=== PATIENT | female | born 2000 | race Caucasian/White ===

== ENCOUNTER 2024-11-30 08:38 | Emergency (ER) | payer MEDICAID ==
[~2024-11-30] VITALS: Ht 152.4 cm; Wt 129.6 kg
[2024-11-30] MEDS ORDERED: PRAZ1 PO (08:49)
[2024-11-30] MEDS ORDERED: ALBU18HF12 IH (08:49)
[2024-11-30] MEDS ORDERED: ONDA-104 PO (08:49)
[2024-11-30] MEDS ORDERED: SERT-158 PO (08:49)
[2024-11-30 09:09] LABS: BASOPHILS % (AUTO) 0.7 % (0.0-2.0); EOSINOPHILS % (AUTO) 1.4 % (1.0-6.0); HEMATOCRIT 43.2 % (36-46); LYMPHOCYTES # (AUTO) 2.6 K/uL (1.0-4.8); LYMPHOCYTES % (AUTO) 24.4 % (22.0-44.0); MEAN CORPUSCULAR HEMOGLOBIN 27.6 pg (26.0-34.0); MEAN CORPUSCULAR HGB CONC 32.5 G/dL (31.0-37.0); MEAN CORPUSCULAR VOLUME 85 fL (80-100); MONOCYTES # (AUTO) 0.8 K/uL (0.1-1.0); NEUTROPHILS # (AUTO) 7.2 K/uL (1.8-7.7); NEUTROPHILS % (AUTO) 66.5 % (40.0-70.0); PLATELET COUNT (AUTO) 284 K/uL (150-450); RED BLOOD CELL COUNT(AUTO) 5.08 MIL/uL (4.00-5.20); RED CELL DISTRIBUTION WIDTH 14.3 % (11.5-14.5); WHITE BLOOD COUNT (AUTO) 10.8 K/uL (4.5-11.0)
[2024-11-30] MEDS: OMEPRAZOLE 20 MG CAPSULE PO ONE (09:11)
[2024-11-30] MEDS: ONDANSETRON 4 MG TABLET PO ONE (09:11)
[2024-11-30] MEDS: ACETAMINOPHEN 500 MG TABLET PO ONE (09:12)
[2024-11-30] MEDS: LORazepam 2 MG TABLET PO ONE (09:12)
[2024-11-30 09:15] LABS: ANION GAP 8 mmol/L (8-16); CARBON DIOXIDE 28 mmol/L (22-29); CHLORIDE 101 mmol/L (98-107); CREATININE 0.53 mg/dL (0.60-1.30); GLOMERULAR FILTR. RATE CALC > 60 mL/min (>60); GLUCOSE,RANDOM 99 mg/dL (70-110); POTASSIUM 4.1 mmol/L (3.5-5.1); SODIUM SERUM 137 mmol/L (136-145); UREA NITROGEN, BLOOD 9 mg/dL (7-18)
[2024-11-30 10:07] VITALS: BP 127/70; PULSE 62; RESP 18; TEMP 97.9; O2SAT 100
[2024-11-30] MEDS ORDERED: OMEP-148 PO (10:16)
[2024-11-30] MEDS ORDERED: LORA1TAB25 PO (10:16)
== END 2024-11-30 10:30 | disposition home or self-care (01) ==
LOC: EMS 08:42
DX: R07.89 Other chest pain (principal); I10 Essential (primary) hypertension; J45.909 Unspecified asthma, uncomplicated; F43.22 Adjustment disorder with anxiety; K76.0 Fatty (change of) liver, not elsewhere classified; F32.A Depression, unspecified; Z79.899 Other long term (current) drug therapy
CPT/HCPCS: 99285; 76705; 71045; 80048; 84703; 85025; 36415; 93005; Q0162